=== PATIENT | male | born 1990 | race Caucasian/White ===

== ENCOUNTER 2024-05-29 15:42 | Emergency (ER) | payer BC ==
[~2024-05-29] VITALS: Ht 188 cm; Wt 100.5 kg
[2024-05-29] MEDS ORDERED: CLIN-97 PO (17:54)
[2024-05-29] MEDS ORDERED: AMOX875T2 PO (17:54)
[2024-05-29 18:03] VITALS: BP 128/74; PULSE 80; RESP 16; TEMP 98.3; O2SAT 99
== END 2024-05-29 18:04 | disposition home or self-care (01) ==
LOC: ER 15:42
DX: L03.213 Periorbital cellulitis (principal); Z88.2 Allergy status to sulfonamides
CPT/HCPCS: 99283